=== PATIENT | male | born 1955 | race Caucasian/White ===

== ENCOUNTER 2018-10-07 11:39 | Emergency (ER) | payer MEDICARE, OTHER ==
[2018-10-07 12:30] VITALS: BP 149/87
--- NOTE | 2018-10-07 13:44 | ED Physician Documentation ---
History of Present Illness - Stated complaint Stated Complaint: REMOVE STITCHES - Chief complaint Chief Complaint: Ext Problem - History obtained from History obtained from: Patient - Additonal information Additional information: Patient is a 63-year-old male presenting with request for removal of stitches to his left upper arm. Patient had basal cell cancer removal surgery in [place] about 2 weeks ago and was told by his physician to have stitches removed at 14 days. Patient denies any pain, bleeding, other drainage, erythema or signs of infection. Patient otherwise without complaint. No improving or worsening factors noted. Review of Systems Skin: denies: Rash, Lesions Musculoskeletal: denies: Extremity pain PD PAST MEDICAL HISTORY - Past Medical History Past Medical History: Yes Cardiovascular: Hypertension, High cholesterol Endocrine/Autoimmune: Type 2 diabetes - Past Surgical History Past Surgical History: Yes Ortho: Knee replacement - Allergies Allergies/Adverse Reactions: Allergies Allergy/AdvReac Type Severity Reaction Status Date / Time No Known Drug Allergies Allergy Verified 10/07/18 12:29 - Social History Does the pt smoke?: No Smoking Status: Never smoker - Immunizations Immunizations are current?: Yes PD ED PE NORMAL - General General: Alert and oriented X 3, No acute distress, Well developed/nourished - HEENT HEENT: Atraumatic - Cardiac Cardiac: Strong equal pulses (Capillary refill brisk) - Respiratory Respiratory: No respiratory distress - Derm Derm: Normal color, Warm and dry, No rash, Other (Multiple stitches overlying left upper arm on the underside without starting signs of infection or other complication noted. No drainage. No pain to the touch. No ecchymosis or other concerns found.) - Extremities Extremities: No deformity - Neuro Neuro: No motor deficit, No sensory deficit Results - Vitals Vitals: Vital Signs - 24 hr 10/07/18 12:25 Temperature 36.6 C Heart Rate 103 H Respiratory 16 Rate Blood Pressure 149/87 H O2 Saturation 94 Oxygen O2 Source Room air PD MEDICAL DECISION MAKING - ED course Complexity details: considered differential, d/w patient ED course: Patient presenting with request for removal of sutures. Feel appropriate as patient has completed appropriate timeframe and has had no comp occasions. No signs of infection or other issue noted. Sutures removed without issue. Patient advised of return precautions, appropriate follow-up, and supportive cares. Patient voiced understanding and is comfortable discharge plan. Departure - Departure Disposition: 01 Home, Self Care Clinical Impression: Visit for suture removal Condition: Good Instructions: ED Stap Removal No Complication Follow-Up: DWAYNE BRITO MD [Primary Care Provider] - Within 3 Days Comments: Please follow-up with surgeon as scheduled or primary care physician next 2-3 days. May apply bacitracin or Neosporin daily, but please do allowed to scab and dry. Return to ED sooner if expands complications, reopening, or signs of infection.
== END 2018-10-07 13:53 | disposition home or self-care (01) ==
LOC: ED 11:39
DX: Z48.02 Encounter for removal of sutures (principal); I10 Essential (primary) hypertension; E11.9 Type 2 diabetes mellitus without complications
CPT/HCPCS: 99281; 99283

== ENCOUNTER 2020-10-31 07:57 | Outpatient (CLI) | payer MEDICARE | END 2020-10-31 07:58 | disposition critical access hospital (66) | LOC: EMS 07:57 | DX: R06.09 Other forms of dyspnea (principal); R14.0 Abdominal distension (gaseous) | CPT/HCPCS: A0425; A0429 ==

== ENCOUNTER 2020-10-31 08:25 | Emergency (ER) | payer MEDICARE ==
[2020-10-31] MEDS ORDERED: IPRATROPIUM/ALBUTEROL 3 ML NEB INH STA (08:34)
[2020-10-31] MEDS ORDERED: DEXAMETHASONE 10 MG/ML VIAL IVP STA (08:34)
--- NOTE | 2020-10-31 08:35 | ED Physician Documentation ---
PD HPI DYSPNEA - Stated complaint Stated Complaint: SOA - History obtained from History obtained from: Patient, EMS - History of Present Illness Timing - onset: How many days ago (several days to 1-2 weeks of increased dyspnea without cough nor fever. No notable leg edema. Has had fatigue with activity. No chest pain per se. Symptoms have worsened more the past 2-3 days.) Timing - onset during: Light activity Timing - duration: Days Timing - details: Gradual onset, Still present Inciting event(s): Out of meds (he has used ALbuterol MDI episodically in the past, particularly with spring allergies. No history of COPD per se. No history of CHF/MA.) Improved by: Rest, Sitting up Worsened by: Exertion, Laying flat Associated symptoms: Wheezing, Bilateral edema (minimal). No: Fever, Cough, Chest pain / discomfort Similar symptoms before: Has not had sx before Recently seen: Not recently seen, Other (COVID vaccines x 2, second dose over a month ago.) Review of Systems Constitutional: reports: Myalgias, Fatigue. denies: Fever, Chills Nose: reports: Rhinorrhea / runny nose, Congestion Throat: reports: Sore throat Cardiac: reports: Pedal edema (mild). denies: Chest pain / pressure, Palpitations, Calf pain Respiratory: reports: Dyspnea, Cough, Wheezing GI: denies: Abdominal Pain, Nausea, Vomiting, Diarrhea Skin: denies: Rash, Lesions Neurologic: reports: Generalized weakness. denies: Focal weakness, Numbness, Near syncope, Altered mental status, Headache PD PAST MEDICAL HISTORY - Past Medical History Cardiovascular: Hypertension, High cholesterol, Valve disorder (he states bicuspid aortic valve and is being followed with [facility] Not critical nor any surgical discussion, so sounds mild. ) Respiratory: Asthma Endocrine/Autoimmune: Type 2 diabetes - Past Surgical History Past Surgical History: Yes Ortho: Knee replacement - Allergies Allergies/Adverse Reactions: Allergies Allergy/AdvReac Type Severity Reaction Status Date / Time No Known Drug Allergies Allergy Verified 10/31/20 08:39 - Living Situation Living Arrangement: reports: At home - Social History Does the pt smoke?: No Smoking Status: Never smoker Does the pt drink ETOH?: No Does the pt have substance abuse?: No - Family History Family history: reports: CAD. denies: Sudden - Immunizations Immunizations are current?: Yes PD ED PE NORMAL - Vitals Vital signs reviewed: Yes - General General: Alert and oriented X 3, Well developed/nourished, Other (tachypneic, with work of breathing, accessory muscle use. ) - HEENT HEENT: Pharynx benign. No: Moist mucous membranes - Neck Neck: Supple, no meningeal sign, No adenopathy, No JVD - Cardiac Cardiac: No: RRR (irregular and fast heart rate 120-135 ) - Respiratory Respiratory: No: Clear bilaterally (bilateral wheezing. No coarse sounds. He is having work of breathing with tachypnea and accessory muscle use. Able to talk in mostly complete sentences. Pale. ) - Abdomen Abdomen: Soft, Non tender - Back Back: No CVA TTP - Derm Derm: No: Normal color (diaphoretic, with pale hands. ) - Extremities Extremities: No tenderness to palpate, Normal ROM s pain, No calf tenderness / cord, Other (minimal edema in both ankles. No calf tenderness nor swelling. ) - Neuro Neuro: Alert and oriented X 3, No motor deficit, Normal speech Eye Opening: Spontaneous Motor: Obeys Commands Verbal: Oriented GCS Score: 15 - Psych Psych: No: Normal affect (somewhat anxious) Results - Vitals Vitals: Vital Signs - 24 hr 10/31/20 10/31/20 10/31/20 08:33 08:43 08:51 Temperature 35 C L Heart Rate 123 H 119 H 112 H Respiratory 33 H 32 H 36 H Rate Blood Pressure 149/127 H 149/129 H O2 Saturation 78 L 10/31/20 10/31/20 10/31/20 09:09 09:16 09:39 Temperature Heart Rate 97 83 94 Respiratory 32 H 36 H Rate Blood Pressure 150/103 H 94/76 O2 Saturation 86 L 88 L 10/31/20 10/31/20 09:46 10:09 Temperature Heart Rate 91 89 Respiratory 36 H 24 Rate Blood Pressure 88/52 L O2 Saturation 95 Oxygen O2 Source BIPAP - EKG (time done) 08:35 Rate: Rate (enter#) (133) Rhythm: Atrial fibrillation Goodman: Normal Intervals: No: Wide QRS QRS: Normal Ischemia: Normal ST segments. No: ST elevation c/w ischemia, ST depression - Labs Labs: Laboratory Tests 10/31/20 10/31/20 10/31/20 08:45 08:45 08:45 WBC 15.8 H RBC 4.59 L Hgb 14.9 Hct 45.2 MCV 98.5 H MCH 32.5 H MCHC 33.0 RDW 14.8 Plt Count 217 MPV 9.2 Neut # (Auto) 13.0 H Lymph # (Auto) 1.5 Donley # (Auto) 1.1 H Eos # (Auto) 0.1 Baso # (Auto) 0.1 Absolute Nucleated RBC 0.02 Nucleated RBC % 0.1 VBG pH VBG pCO2 VBG pO2 VBG HCO3 VBG Total CO2 VBG O2 Saturation VBG Base Excess Sodium 132 L Potassium 6.1 H* Chloride 96 L Carbon Dioxide 21 Anion Gap 15.0 H BUN 20 Creatinine 2.1 H Estimated GFR (MDRD) 32 L Glucose 212 H Calcium 9.2 Total Bilirubin 2.5 H AST 33 ALT 26 Alkaline Phosphatase 85 Troponin I High Sens 64.3 H* B-Natriuretic Peptide Total Protein 7.2 Albumin 3.3 Globulin 3.9 Albumin/Globulin Ratio 0.8 L Lipase 21 L Nasal Adenovirus (PCR) Nasal B. parapertussis DNA (PCR) Nasal Coronavir 229E PCR Nasal Coronavir HKU1 PCR Nasal Coronavir NL63 PCR Nasal Coronavir OC43 PCR Nasal Enterovir/Rhinovir PCR Nasal Influenza B PCR Nasal Influenza A PCR Nasal Parainfluen 1 PCR Nasal Parainfluen 2 PCR Nasal Parainfluen 3 PCR Nasal Parainfluen 4 PCR Nasal RSV (PCR) Nasal B.pertussis DNA PCR Nasal C.pneumoniae (PCR) Mack Human Metapneumo PCR Nasal M.pneumoniae (PCR) Nasal SARS-CoV-2 (PCR) 10/31/20 10/31/20 10/31/20 08:45 08:45 08:45 WBC RBC Hgb Hct MCV MCH MCHC RDW Plt Count MPV Neut # (Auto) Lymph # (Auto) Donley # (Auto) Eos # (Auto) Baso # (Auto) Absolute Nucleated RBC Nucleated RBC % VBG pH 7.259 L VBG pCO2 52.2 H VBG pO2 21.6 L VBG HCO3 22.8 L VBG Total CO2 24.4 VBG O2 Saturation 30.1 L VBG Base Excess -4.8 L Sodium Potassium Chloride Carbon Dioxide Anion Gap BUN Creatinine Estimated GFR (MDRD) Glucose Calcium Total Bilirubin AST ALT Alkaline Phosphatase Troponin I High Sens B-Natriuretic Peptide 336 H Total Protein Albumin Globulin Albumin/Globulin Ratio Lipase Nasal Adenovirus (PCR) NOT DETECTED Nasal B. parapertussis DNA (PCR) NOT DETECTED Nasal Coronavir 229E PCR NOT DETECTED Nasal Coronavir HKU1 PCR NOT DETECTED Nasal Coronavir NL63 PCR NOT DETECTED Nasal Coronavir OC43 PCR NOT DETECTED Nasal Enterovir/Rhinovir PCR NOT DETECTED Nasal Influenza B PCR NOT DETECTED Nasal Influenza A PCR NOT DETECTED Nasal Parainfluen 1 PCR NOT DETECTED Nasal Parainfluen 2 PCR NOT DETECTED Nasal Parainfluen 3 PCR NOT DETECTED Nasal Parainfluen 4 PCR NOT DETECTED Nasal RSV (PCR) NOT DETECTED Nasal B.pertussis DNA PCR NOT DETECTED Nasal C.pneumoniae (PCR) NOT DETECTED Mack Human Metapneumo PCR NOT DETECTED Nasal M.pneumoniae (PCR) NOT DETECTED Nasal SARS-CoV-2 (PCR) NOT DETECTED - Rads (name of study) chest xray Radiology: Prelim report reviewed (decreased inspirations. No local infiltrates. ), See rad report chest repeat Radiology: Prelim report reviewed (no interval change), See rad report chest repeat post intub Radiology: Prelim report reviewed, EMP read contemporaneously (aimed to right mainstem with opacification right upper lobe c/w atelectasis. Left side inflated. ), See rad report Procedures - Intubation Provider: Emergency physician Blade: Glidescope Tube: Size-enter number (8.0), Cuffed Route: Oral Confirmation: Direct visualization, Bilateral breath sounds, End tidal CO2, Pulse ox, Chest xray Complications: Right mainstem (will pull tube back) PD MEDICAL DECISION MAKING - ED course Complexity details: re-evaluated patient (The patient was improving with nebulizer treatments repeated and oxygenation. BiPAP helped quite a bit as well. He is now sitting up comfortably and able to work without accessory muscles. He does not appear to be tiring.), considered differential, d/w patient ED course: The patient had been hypoxic and looked in respiratory distress on presentation. However with repeated nebulizer treatments and oxygen supplementation by facemask and then BiPAP, the patient saturations improved to the 90s percent and his work of breathing improved considerably. He is able to talk in sentences though with difficulty given the BiPAP mask. He did appear more relaxed and had improved color. We were working to continue the BiPAP and anticipating getting a blood gas to verify adequate ventilation. I would be contacting the hospitalist. The patient stated he needed to go to the bathroom and as the nurse was helping him pull down his pants for the urinal, he then rolled his eyes and appeared to pass out. His effort of breathing decreased and his oxygenation started to decrease. We attended to him promptly with then starting bag valve mask ventilation but the heart monitor very rapidly decreased in heart rate to a bradycardia and then agonal rhythm. CPR was started. The [id number] was continued and preparations for intubation were done (the materials were already in the room having previously anticipated needing to intubate earlier). We maintain CPR and did ACLS measures. I perception was likely mostly respiratory failure with subsequent arrest to so we did work at intubating the patient as well. We did get good titling on the end-tidal CO2 monitor. Lung sounds sounded symmetric. The code was continued with appropriate ACLS measures. At 1 point there was an appearance of course V. fib rather than asystole and defibrillation was done. After 2 minutes of CPR the recheck at that point was asystole again. Resuscitative efforts were continued a total of approximately 40 minutes without any success. At this point the patient remained asystolic and a bedside ultrasound showed no cardiac activity and resuscitative efforts were stopped. It was towards the end of this I were able to get a chest x-ray intervening which showed the 2 position being directed toward the right right mainstem. His oxygenation during the resuscitation was 98% so I do not think this was a hindrance on the efforts. - Critical Care Time(min): 50 Time Includes: Direct patient care Data interpretation: Labs, Pulse ox, CXR Procedures included in critical care time: Ventilator mgmt Procedures excluded from critical care time: EKG Departure - Departure Disposition: 20 Clinical Impression: Acute dyspnea, Atrial fibrillation, new onset, Hypoxia, Acute renal insufficiency, Respiratory failure Condition: Critical
[2020-10-31] MEDS ORDERED: diltiaZEM INJ 5 MG/ML VIAL IVP STA (08:43)
[2020-10-31 08:48] LABS: BASOPHILS # (AUTO) 0.1 10^3/uL (0.0-0.1); BASOPHILS % (AUTO) 0.5 %; EOSINOPHILS # (AUTO) 0.1 10^3/uL (0.0-0.7); EOSINOPHILS % (AUTO) 0.4 %; HCT - HEMATOCRIT 45.2 % (42.0-52.0); HGB - HEMOGLOBIN 14.9 g/dL (14.0-18.0); LYMPHOCYTES # (AUTO) 1.5 10^3/uL (1.5-3.5); LYMPHOCYTES % (AUTO) 9.2 %; MEAN CORPUSCULAR HEMOGLOBIN 32.5 pg (27.0-31.0); MEAN CORPUSCULAR VOLUME 98.5 fL (80.0-94.0); MEAN PLATELET VOLUME 9.2 fL (7.4-11.4); MONOCYTES # (AUTO) 1.1 10^3/uL (0.0-1.0); NRBC ABSOLUTE COUNT (AUTO) 0.02 x10^3/uL; NUCLEATED RED BLOOD CELLS AUTO 0.1 /100WBC; PLT - PLATELET COUNT 217 10^3/uL (130-450); RED BLOOD COUNT 4.59 10^6/uL (4.70-6.10); RED CELL DISTRIBUTION WIDTH 14.8 % (12.0-15.0); WHITE BLOOD COUNT 15.8 x10^3/uL (4.8-10.8)
[2020-10-31] MEDS ORDERED: ALBUTEROL NEB 2.5 MG/3 ML INH STA ×2 (08:54→09:24)
--- NOTE | 2020-10-31 08:55 | XRAY Report ---
PROCEDURE: Chest 1 View X-Ray INDICATIONS: chest pain TECHNIQUE: One view of the chest was acquired. COMPARISON: None. FINDINGS: Surgical changes and devices: None. Lungs and pleura: No pleural effusions or pneumothorax. Lungs are difficult to accurately assess du e to reduced inspiratory volume. Mediastinum: Mediastinal contours appear abnormal, possibly associated with aortic aneurysm. The med iastinal contours are relatively wide at the mid chest level.. Heart size is normal. Bones and chest wall: No suspicious bony lesions. Overlying soft tissues appear unremarkable. IMPRESSION: Prominent reduced inspiratory volume. Abnormal prominence of the transverse dimension of the mediasti num, potentially a manifestation of aortic aneurysm. Depending on the clinical status follow-up by co ntrast-enhanced CT scanning through the chest may be warranted. Crowding of the bronchovascular nasra ngs, prominent reduced inspiration, mild pulmonary edema cannot be entirely excluded. Reviewed by: Ruben Christopher MD on 10/31/2020 8:54 AM PDT Approved by: Ruben Christopher MD on 10/31/2020 8:54 AM PDT Station ID: [id number]
--- OUTSIDE RECORDS SUMMARY | 2020-10-31 09:02 | EXTERNAL MEDICAL SUMMARY RPT | Continuity of Care Document ---
:1955 Demographics Phone Unavailable Preferred Language Unknown Marital Status Unknown Jainism Affiliation Unknown Race Unknown Ethnic Group Unknown Author Organization [facility] Address [address] [id number] Phone Social History date description facility [id number]
[2020-10-31 09:03] LABS: ALBUMIN 3.3 g/dL (3.2-5.5); ALBUMIN/GLOBULIN RATIO 0.8 (1.0-2.2); BILIRUBIN,TOTAL 2.5 mg/dL (0.2-1.0); CALCIUM 9.2 mg/dL (8.5-10.3); CREATININE 2.1 mg/dL (0.6-1.2); TOTAL PROTEIN 7.2 g/dL (6.7-8.2)
[2020-10-31 09:05] LABS: POTASSIUM 6.1 mmol/L (3.5-5.0)
[2020-10-31] MEDS ORDERED: SODIUM BICARBONATE ABBOJECT 4.2% 5 MEQ/10 ML SYRINGE IVP STA (09:07)
[2020-10-31] MEDS ORDERED: SODIUM CHLORIDE 0.9% 250 ML IV STA ×2 (09:29→10:01)
[2020-10-31 09:30] LABS: VBG PH 7.259 (7.31-7.41)
[2020-10-31 09:31] LABS: VBG BASE EXCESS -4.8 mmol/L (-2 - +2); VBG HCO3 22.8 mmol/L (23-28); VBG OXYGEN SATURATION 30.1 % (60-80); VBG PCO2 52.2 mmHg (41-51); VBG PO2 21.6 mmHg (25-47); VBG TOTAL CO2 24.4 mmol/L (24-29)
[2020-10-31] MEDS ORDERED: SODIUM BICARBONATE 8.4% 50 MEQ/50 ML VIAL IVP ONE (10:00)
[2020-10-31 10:08] LABS: B. PARAPERTUSSIS- RESP PCR PAN NOT DETECTED; B. PERTUSSIS- RESP PCR PANEL NOT DETECTED; C. PNEUMONIAE- RESP PCR PANEL NOT DETECTED; CORONAVIRUS 229E-RESP PCR NOT DETECTED; CORONAVIRUS HKU1-RESP PCR NOT DETECTED; CORONAVIRUS NL63-RESP PCR NOT DETECTED; CORONAVIRUS OC43-RESP PCR NOT DETECTED; HUMAN METAPNEUMOVIRUS NOT DETECTED; INFLUENZA A- RESP PCR PANEL NOT DETECTED; INFLUENZA B - RESP PCR PANEL NOT DETECTED; M. PNEUMONIAE- RESP PCR PANEL NOT DETECTED; PARAINFLUENZA VIRUS 1 NOT DETECTED; PARAINFLUENZA VIRUS 2 NOT DETECTED; PARAINFLUENZA VIRUS 3 NOT DETECTED; PARAINFLUENZA VIRUS 4 NOT DETECTED; RHINOVIRUS/ENTEROVIRUS NOT DETECTED; RSV- RESP PCR PANEL NOT DETECTED; SARS-CoV-2 -RESP PCR PANEL NOT DETECTED
[2020-10-31] MEDS ORDERED: SODIUM CHLORIDE 0.9% 500 ML IV STA (10:20)
--- NOTE | 2020-10-31 10:33 | XRAY Report ---
PROCEDURE: Chest 1 View X-Ray INDICATIONS: chest pain TECHNIQUE: One view of the chest was acquired. COMPARISON: 10/31/2020 at 0820 hours. FINDINGS: Surgical changes and devices: None. Lungs and pleura: No pleural effusions or pneumothorax. Lungs are clear. Lungs are hypoinflated Mediastinum: Mediastinal contours remain prominent Heart size is normal. Bones and chest wall: No suspicious bony lesions. Overlying soft tissues appear unremarkable. IMPRESSION: 1. No acute cardiopulmonary disease process. 2. Prominence of the mediastinal contours stable compared to prior examination. Finding may be relate d to thoracic aortic aneurysm. CT scan of the chest with contrast (considered for further evaluation of clinically indicated. Reviewed by: Kate Martin MD, PhD on 10/31/2020 10:32 AM PDT Approved by: Kate Martin MD, PhD on 10/31/2020 10:32 AM PDT Station ID: [id number]
[2020-10-31] MEDS ORDERED: EPINEPHrine 4 MG in DEXTROSE 5% 246 ML IV STA (10:41)
[2020-10-31] MEDS ORDERED: EPINEPHrine ABBOJECT 1 MG/10 ML SYRINGE IVP STA ×6 (10:42→12:56)
[2020-10-31] MEDS ORDERED: ATROPINE ABBOJECT 1 MG/10 ML SYRINGE IVP STA ×2 (10:46→12:58)
--- NOTE | 2020-10-31 11:12 | XRAY Report ---
PROCEDURE: Chest 1 View X-Ray INDICATIONS: ACTIVE CPR TECHNIQUE: One view of the chest was acquired. COMPARISON: Same day at 9:52 AM FINDINGS: Surgical changes and devices: There is interval intubation, ET tube tip is extending into proximal ri ght mainstem bronchus, should be pulled back by 6 to 7 cm. Lungs and pleura: There is interval development of significant left upper lobe atelectasis. Hazy opac ities are also seen in right mid to lower lung field suggestive of patchy infiltrate/atelectasis. Sim ilar opacities also seen in left midlung field also new since previous study. No significant pleural effusion. No gross pneumothorax. Mediastinum: Mediastinal contours appear normal. Heart size is normal. Bones and chest wall: No suspicious bony lesions. Overlying soft tissues appear unremarkable. IMPRESSION: 1. ET tube tip is in proximal right mainstem bronchus should be pulled back by 6 to 7 cm. 2. Interval development of significant opacification in right upper lobe suggestive of right upper lo be atelectasis. Additional ill-defined airspace opacities also seen in left midlung field and right m id to lower lung menon. No gross pneumothorax. Reviewed by: Fortunato Nuñez MD on 10/31/2020 10:10 AM FEDERICO Approved by: Fortunato Nuñez MD on 10/31/2020 10:10 AM AKULISES Station ID: [id number]
[2020-10-31] MEDS ORDERED: EPINEPHRINE IV STA (12:56)
[2020-10-31] MEDS ORDERED: DEXTROSE 5% IV STA (12:56)
[2020-10-31] MEDS ORDERED: SODIUM BICARBONATE ABBOJECT 50 MEQ/50 ML SYRINGE IVP STA (12:58)
[2020-10-31] MEDS ORDERED: CALCIUM CHLORIDE ABBOJECT 1000MG/10 ML SYRINGE IVP STA (12:58)
[2020-10-31] MEDS ORDERED: EPINEPHrine ABBOJECT 1 MG/10 ML SYRINGE IVP ONE (13:20)
[2020-10-31 15:01] VITALS: BP 95/66
== END 2020-10-31 10:55 | disposition expired ==
LOC: EDUNIT# → ED 08:25
DX: J96.91 Respiratory failure, unspecified with hypoxia (principal); I46.9 Cardiac arrest, cause unspecified; I49.01 Ventricular fibrillation; I48.91 Unspecified atrial fibrillation; N28.9 Disorder of kidney and ureter, unspecified; I10 Essential (primary) hypertension; J45.909 Unspecified asthma, uncomplicated; E11.9 Type 2 diabetes mellitus without complications; Z20.822 Contact with and (suspected) exposure to COVID-19
CPT/HCPCS: 0202U; 31500; 36415; 80053; 82803; 83690; 83880; 84484; 85025; 92950; 93005; 94640